=== PATIENT | male | born 1985 | race American Indian/Alaskan Native ===

== ENCOUNTER 2019-05-12 10:41 | Emergency (ER) | payer OTHER ==
[~2019-05-12] VITALS: Ht 175.3 cm; Wt 113.4 kg
[~2019-05-12 10:41] MED LIST: ALBU90OI INH; HYDACE5 PO; IBUP600 PO; Mucinex600 MG PO
== END 2019-05-12 11:46 | disposition home or self-care (01) ==
LOC: ER 10:41
DX: S67.193A Crushing injury of left middle finger, initial encounter (principal); F17.200 Nicotine dependence, unspecified, uncomplicated; Z23 Encounter for immunization; Z79.899 Other long term (current) drug therapy; X58.XXXA Exposure to other specified factors, initial encounter; Y99.0 Civilian activity done for income or pay
CPT/HCPCS: 12001; 73140; 90471; 90714; 99283-25

== ENCOUNTER 2020-01-09 17:06 | Emergency (ER) | payer OTHER ==
[~2020-01-09] VITALS: Ht 172.7 cm; Wt 113.4 kg
[2020-01-09] MEDS ORDERED: Ativan1 MG PO (18:42)
== END 2020-01-09 18:47 | disposition home or self-care (01) ==
LOC: ER 17:06
DX: F43.0 Acute stress reaction (principal)
CPT/HCPCS: 99282

== ENCOUNTER 2020-01-12 05:59 | Emergency (ER) | payer OTHER ==
[~2020-01-12] VITALS: Ht 175.3 cm; Wt 113.4 kg
[~2020-01-12 05:59] MED LIST changes: +Ativan1 MG PO
== END 2020-01-12 07:59 | disposition home or self-care (01) ==
LOC: ER 05:59
DX: Z20.828 Contact with and (suspected) exposure to other viral communicable diseases (principal); F17.200 Nicotine dependence, unspecified, uncomplicated
CPT/HCPCS: 99282

== ENCOUNTER 2021-11-03 07:40 | Day surgery (SDC) | payer OTHER ==
[~2021-11-03] VITALS: Ht 173 cm; Wt 108.7 kg
--- NOTE | 2021-11-03 08:51 | NUR ---
History, Chart, Medications and Allergies reviewed before start of procedure. Patient confirms NPO status and agrees with scheduled surgery. Patient States Post-Procedure ride home has been arranged with his fiance.
--- NOTE | 2021-11-03 08:52 | NUR ---
Lungs clear T/O to Auscultation.
--- NOTE | 2021-11-03 12:00 | NUR ---
Patient up to Ambulate independently. Gait steady. Discharge instructions reviewed with patient. Patient verbalizes understanding. Copy given to patient to take home. Dressing to procedure site clean, dry, intact with no visible drainage, swelling, erythema or bruising noted. Patient States Post-Procedure ride home has been arranged. Discharged via wheelchair to private car for ride home.
--- NOTE | 2021-11-06 14:53 | NUR ---
11/06/21 1453 Giovana Ramirez VERIFICATIONS: EDIT CHART.
== END 2021-11-03 23:15 | disposition home or self-care (01) ==
LOC: ORSCMMR 07:40 → ORD 09:00 → ORSCMMR 09:00
PROVIDERS: Surgery
PROC: 0WQF0ZZ Repair Abdominal Wall, Open Approach (ICD-10-PCS; principal; 2021-11-03 09:00)
DX: K42.0 Umbilical hernia with obstruction, without gangrene (principal); F17.210 Nicotine dependence, cigarettes, uncomplicated; E66.9 Obesity, unspecified; Z68.36 Body mass index [BMI] 36.0-36.9, adult
CPT/HCPCS: A9270; J0690; J1100; J1885; J2405; J2704; J2795; J3010; J7120